=== PATIENT | female | born 1970 | race Caucasian/White ===

== ENCOUNTER 2019-02-20 07:30 | Outpatient (CLI) | payer BC ==
--- NOTE | 2019-02-20 08:23 | MMO ---
Bilateral MAMMO Bilat Screen [facility]. CLINICAL HISTORY: Patient is 48 years old and is seen for screening. The patient has the following family history of breast cancer: paternal grandmother. The patient has no personal history of cancer. VIEWS: The views performed were: bilateral craniocaudal with tomosynthesis and bilateral mediolateral oblique with tomosynthesis. FILMS COMPARED: The present examination has been compared to prior imaging studies performed at [facility] on 11/15/2015 and 01/12/2017. MAMMOGRAM FINDINGS: The breasts are heterogeneously dense, which could obscure a lesion on mammography. There are no suspicious masses, suspicious calcifications, or new areas of architectural distortion. IMPRESSION: THERE IS NO MAMMOGRAPHIC EVIDENCE OF MALIGNANCY. A ROUTINE FOLLOW-UP MAMMOGRAM IN 1 YEAR IS RECOMMENDED. THE RESULTS OF THIS EXAM WERE SENT TO THE PATIENT. ACR BI-RADS Category 1 - Negative MAMMOGRAPHY NOTE: 1. A negative mammogram report should not delay a biopsy if a dominant of clinically suspicious mass is present. 2. Approximately 10% to 15% of breast cancers are not detected by mammography. 3. Adenosis and dense breasts may obscure an underlying neoplasm.
--- NOTE | 2019-02-20 08:35 | ULT ---
EXAM: Abdominal ultrasound complete: HISTORY: Abdominal distention COMPARISON: None FINDINGS: Minimally enlarged echogenic liver evidence for fatty change. No evidence of gallstones, gallbladder wall thickening or pericholecystic fluid although there does a ppear to be minimal gallbladder sludge. Negative Caldwell's sign. The common bile duct is Within normal limits. Visualized pancreas: Unremarkable. Visualized abdominal aorta: Unremarkable. Visualized IVC: Unremarkable. Visualized spleen: Unremarkable. Visualized kidneys: No evidence for hydronephrosis or solid or cystic mass. No mass, abscess, adenopathy, or abnormal fluid collection or other acute process. IMPRESSION: Minimally enlarged liver with fatty changes. Evidence for gallbladder sludge.
== END 2019-02-20 07:31 | disposition home or self-care (01) ==
LOC: BICULT 07:30
PROVIDERS: ATTEND Family Medicine
DX: Z12.31 Encounter for screening mammogram for malignant neoplasm of breast (principal); R14.0 Abdominal distension (gaseous); R10.84 Generalized abdominal pain; K76.0 Fatty (change of) liver, not elsewhere classified; K82.8 Other specified diseases of gallbladder; Z80.3 Family history of malignant neoplasm of breast
CPT/HCPCS: 76700; 77063; 77067